=== PATIENT | male | born 1950 | race Caucasian/White ===

== ENCOUNTER 2019-03-26 09:05 | Emergency (ER) | payer MEDICARE, OTHER ==
[~2019-03-26] VITALS: Ht 185.4 cm; Wt 94.9 kg
[~2019-03-26 09:05] MED LIST: CHOL100046 PO; FAMO40TA73 PO; RED600TA PO; TICA90TA2 PO
[2019-03-26] MEDS ORDERED: dexamethasone sod phosphate 10mg/ml inj IV STA (09:56)
[2019-03-26 09:57] LABS: BASOPHILS # (AUTO) 0.1 X10'3 (0-0.2); BASOPHILS % (AUTO) 0.6 % (0-1); EOSINOPHILS # (AUTO) 0.2 X10'3 (0-0.9); EOSINOPHILS % (AUTO) 1.2 % (0-6); HEMATOCRIT 45.4 % (42.0-52.0); HEMOGLOBIN 15.3 g/dl (14.0-17.9); LYMPHOCYTES # (AUTO) 1.8 X10'3 (1.1-4.8); LYMPHOCYTES % (AUTO) 14.3 % (21-51); MEAN CORPUSCULAR HEMOGLOBIN 31.2 PG (27.0-31.0); MEAN CORPUSCULAR HGB CONC 33.7 g/dL (33.0-36.5); MEAN CORPUSCULAR VOLUME 92.6 FL (78-98); MEAN PLATELET VOLUME 6.8 FL (7.4-10.4); MONOCYTES # (AUTO) 1.1 X10'3 (0-0.9); NEUTROPHILS # (AUTO) 9.4 X10'3 (1.8-7.7); NEUTROPHILS % (AUTO) 74.9 % (42-75); PLATELET COUNT 287 X10'3 (140-440); RED CELL DISTRIBUTION WIDTH 13.8 % (11.5-14.5); WHITE BLOOD COUNT 12.5 X10'3 (4.5-11.0)
[2019-03-26] MEDS ORDERED: ondansetron/PF 4mg/2ml inj IV ONE (10:00)
[2019-03-26] MEDS ORDERED: morphine 4 MG/ML inj SYRINge IV PRN (10:00)
[2019-03-26 10:08] LABS: ALANINE AMINOTRANSFERASE 14 U/L (12-78); ALBUMIN 3.1 G/DL (3.4-5.0); ALBUMIN/GLOBULIN RATIO 0.7 (1.1-1.5); ALKALINE PHOSPHATASE 87 IU/L (46-116); ANION GAP 9 (8-16); ASPARTATE AMINO TRANSFERASE 9 U/L (10-37); BILIRUBIN,TOTAL 0.4 MG/DL (0.1-1.0); BLOOD UREA NITROGEN 12 MG/DL (7-18); CALCIUM 8.5 MG/DL (8.5-10.1); CHLORIDE 100 MMOL/L (99-107); GLUCOSE 112 MG/DL (70-104); POTASSIUM 4.2 MMOL/L (3.5-5.1); SODIUM 133 MMOL/L (135-145); TOTAL PROTEIN 7.7 G/DL (6.4-8.2); eGFR 60 ML/MIN
[2019-03-26] MEDS ORDERED: famotidine/PF 10 mg/ml inj IV ONE (10:10)
[2019-03-26 10:12] LABS: CLARITY,URINE CLEAR (Clear); COLOR,URINE YELLOW (Yellow); GLUCOSE, URINE NEGATIVE (Neg); KETONES,URINE NEGATIVE (Neg); LEUKOCYTE ESTERASE ,URINE NEGATIVE (Neg); NITRITES, URINE NEGATIVE (Neg); OCCULT BLOOD,URINE SMALL (Neg); PROTEIN,URINE TRACE mg/dl (Neg); UA COLLECTION TYPE URINAL; UROBILINOGEN,URINE 0.2 E.U/dL (0.2-1.0)
[2019-03-26 10:17] LABS: BACTERIA,URINE FEW /HPF (Neg); SQUAMOUS EPITHELIAL CELL,UR FEW /LPF (FEW); WBC,URINE 0-4 /HPF (0-4)
[2019-03-26 10:18] LABS: COARSE GRANULAR CAST 0-3 /LPF (NEGATIVE); HYALINE CASTS 0-3 /LPF (NEGATIVE); MUCUS STRANDS MODERATE /LPF (Neg)
[2019-03-26] MEDS ORDERED: PRED10TA23 PO (11:05)
[2019-03-26] MEDS ORDERED: predniSONE 20 mg tablet PO ONE (11:25)
[2019-03-26] MEDS ORDERED: ketorolac trometh. 30mg/ml inj. IV ONE (11:25)
[2019-03-26] MEDS ORDERED: ketorolac trometh. 30mg/ml inj. IM ONE (11:30)
[2019-03-26 11:37] VITALS: BP 103/56
== END 2019-03-26 11:39 | disposition home or self-care (01) ==
LOC: ER 09:05
DX: M25.562 Pain in left knee (principal); M25.561 Pain in right knee; M25.522 Pain in left elbow; M25.521 Pain in right elbow; M25.571 Pain in right ankle and joints of right foot; M25.572 Pain in left ankle and joints of left foot; M25.531 Pain in right wrist; M25.532 Pain in left wrist; R21 Rash and other nonspecific skin eruption; I25.10 Atherosclerotic heart disease of native coronary artery without angina pectoris; E78.00 Pure hypercholesterolemia, unspecified; I25.2 Old myocardial infarction; Z98.890 Other specified postprocedural states; Z79.899 Other long term (current) drug therapy
CPT/HCPCS: 36415; 80053; 81001; 85025; 85610; 85651; 96372; 96374; 96375; 99284; J1100; J1885; J2270; J2405; J3490; J7512

== ENCOUNTER 2021-02-27 09:23 | Day surgery (SDC) | payer MEDICARE, OTHER ==
[~2021-02-27] VITALS: Ht 200.7 cm; Wt 100.7 kg
[2021-02-27] VITALS (10 sets, daily range): BP systolic 110–141; BP diastolic 67–79
[2021-02-27] MEDS ORDERED: midazolam 1 mg/ML 2ml injection ONE ×2 (09:53→10:55)
[2021-02-27] MEDS ORDERED: heparin 1,000unit/ml 10ml vial 10 ML ONE (09:53)
[2021-02-27] MEDS ORDERED: fentaNYL/PF 50MCG/1 ML 2ML syringe ONE (09:53)
[2021-02-27] MEDS ORDERED: LIDOcaine 1% (10mg/ml)w/preservative injection 20ml MDV ONE (09:53)
[2021-02-27] MEDS ORDERED: iohexol 350MG/ML 100ml bottle IV ONE (09:54)
[2021-02-27] MEDS ORDERED: iohexol 350 MG/ML 50ML vial IV ONE (09:54)
[2021-02-27] MEDS ORDERED: diphenhydrAMINE 25mg capsule PO PRN (09:55)
[2021-02-27] MEDS ORDERED: normal saline 1,000 ML IV SCH (09:55)
[2021-02-27] MEDS ORDERED: ASPI81TA52 PO (10:25)
[2021-02-27] MEDS ORDERED: PANT-47 PO (10:25)
[2021-02-27] MEDS ORDERED: ROSU20TA2 PO (10:25)
[2021-02-27] MEDS ORDERED: CLOP75TA34 PO (10:25)
[2021-02-27] MEDS ORDERED: AMLO2.5T2 PO (10:25)
[2021-02-27 10:39] LABS: BASOPHILS % (AUTO) 0.7 % (0-1); EOSINOPHILS # (AUTO) 0.2 X10'3 (0-0.9); EOSINOPHILS % (AUTO) 3.5 % (0-6); HEMATOCRIT 39.7 % (42.0-52.0); HEMOGLOBIN 13.6 g/dl (14.0-17.9); LYMPHOCYTES # (AUTO) 1.9 X10'3 (1.1-4.8); LYMPHOCYTES % (AUTO) 28.1 % (21-51); MEAN CORPUSCULAR HEMOGLOBIN 33.1 PG (27.0-31.0); MEAN CORPUSCULAR HGB CONC 34.3 g/dL (33.0-36.5); MEAN CORPUSCULAR VOLUME 96.5 FL (78-98); MEAN PLATELET VOLUME 7.4 FL (7.4-10.4); MONOCYTES # (AUTO) 0.5 X10'3 (0-0.9); MONOCYTES % (AUTO) 7.5 % (2-12); NEUTROPHILS % (AUTO) 60.2 % (42-75); PLATELET COUNT 172 X10'3 (140-440); RED BLOOD COUNT 4.11 X10'6 (4.70-6.10); RED CELL DISTRIBUTION WIDTH 13.4 % (11.5-14.5); WHITE BLOOD COUNT 6.7 X10'3 (4.5-11.0)
[2021-02-27 10:49] LABS: ALBUMIN 3.2 G/DL (3.4-5.0); ANION GAP 11 (8-16); BLOOD UREA NITROGEN 16 MG/DL (7-18); BUN/CREATININE RATIO 19.5 (5.4-32.0); CALCIUM 7.1 MG/DL (8.5-10.1); CHLORIDE 110 MMOL/L (99-107); CREATININE 0.82 MG/DL (0.60-1.10); GLUCOSE 83 MG/DL (70-104); POTASSIUM 3.7 MMOL/L (3.5-5.1); SODIUM 143 MMOL/L (135-145); TOTAL CARBON DIOXIDE 21.8 MMOL/L (24-32); eGFR > 90 ML/MIN
[2021-02-27] MEDS ORDERED: proCHLORperazine 10 MG/2 ml inj IV PRN (11:40)
[2021-02-27] MEDS ORDERED: HYDROcodone/acetaminophen 10/325mg tab PO PRN (11:40)
[2021-02-27] MEDS ORDERED: HYDROcodone/acetaminophen 5mg/325mg tablet PO PRN (11:40)
[2021-02-27] MEDS ORDERED: ondansetron/PF 4mg/2ml inj IV PRN (11:40)
== END 2021-02-27 15:10 | disposition home or self-care (01) ==
LOC: SSTAY O 09:23
PROVIDERS: ATTEND Internal Medicine Cardiovascular Disease
DX: R07.89 Other chest pain (principal); I25.118 Atherosclerotic heart disease of native coronary artery with other forms of angina pectoris; E78.5 Hyperlipidemia, unspecified; I10 Essential (primary) hypertension; I25.2 Old myocardial infarction; K21.9 Gastro-esophageal reflux disease without esophagitis; J44.9 Chronic obstructive pulmonary disease, unspecified; Z85.46 Personal history of malignant neoplasm of prostate; Z98.890 Other specified postprocedural states; Z88.8 Allergy status to other drugs, medicaments and biological substances; Z79.899 Other long term (current) drug therapy; Z79.01 Long term (current) use of anticoagulants; Z87.891 Personal history of nicotine dependence; Z79.82 Long term (current) use of aspirin; Z95.5 Presence of coronary angioplasty implant and graft
CPT/HCPCS: 36415; 80048; 83735; 85025; 85610; 93005; 93458; 99152; C1760; C1769; C1894; J1644; J2001; J2250; J3010; J7030; Q0163; Q9967; A4620; A4663; A6258

== ENCOUNTER 2021-06-24 09:02 | Outpatient (CLI) | payer OTHER ==
[~2021-06-24 09:02] MED LIST changes: +AMLO2.5T2 PO; +ASPI81TA52 PO; +CLOP75TA34 PO; -FAMO40TA73 PO; +PANT-47 PO; -RED600TA PO; +ROSU20TA2 PO; -TICA90TA2 PO
== END 2021-06-24 23:59 | disposition home or self-care (01) ==
LOC: RAD 09:02
PROVIDERS: ATTEND Registered Nurse
DX: C61 Malignant neoplasm of prostate (principal)
CPT/HCPCS: 78306; A9503

== ENCOUNTER 2022-01-04 06:47 | Day surgery (SDC) | payer OTHER ==
[~2022-01-04] VITALS: Ht 185.4 cm; Wt 103.0 kg
[2022-01-04 07:15] VITALS: BP 113/65
[2022-01-04] MEDS ORDERED: MULT-1085 PO (07:27)
[2022-01-04] MEDS ORDERED: OMEG-79 PO (07:27)
[2022-01-04] MEDS ORDERED: normal saline 1000ml 1,000 ML IV PRN (07:30)
[2022-01-04] MEDS ORDERED: LIDOcaine 1% 30ml preserv. free vial ONE (08:38)
[2022-01-04 08:52] VITALS: BP 106/76
[2022-01-04 09:25] VITALS: BP 119/71
--- NOTE | 2022-01-04 09:25 | NUR ---
Pt returns from Interventional Radiology procedure not done due to biopsy site "too small" per Dr. Edu BESS. Phoned pt and notified of results and that pt could go home.
[2022-01-04 09:30] VITALS: BP 117/71
== END 2022-01-04 09:55 | disposition home or self-care (01) ==
LOC: SSTAY O 06:47
PROVIDERS: ATTEND Radiology Diagnostic Radiology
DX: R91.1 Solitary pulmonary nodule (principal); I25.10 Atherosclerotic heart disease of native coronary artery without angina pectoris; E78.00 Pure hypercholesterolemia, unspecified; I25.2 Old myocardial infarction; J44.9 Chronic obstructive pulmonary disease, unspecified; F17.210 Nicotine dependence, cigarettes, uncomplicated; Z85.46 Personal history of malignant neoplasm of prostate; Z98.890 Other specified postprocedural states; Z95.5 Presence of coronary angioplasty implant and graft; Z79.01 Long term (current) use of anticoagulants; Z79.899 Other long term (current) drug therapy; Z79.82 Long term (current) use of aspirin
CPT/HCPCS: 71250; J3490